=== PATIENT | female | born 1975 | race Caucasian/White ===

== ENCOUNTER 2016-06-08 04:56 | Emergency (ER) | payer OTHER ==
[~2016-06-08 04:56] MED LIST: AMBIEN10 M1 PO; AMITRIPTYLINE H25 M1 PO; BACTRIM DS TAB1 EAC2 PO; CELEXA20 M2 PO; LORTAB 5-325 M1 EAC1 PO; MELATONIN3 M4 PO; MOBIC15 M2 PO; NEURONTIN300 M1 PO; PRILOSEC20 M1 PO
[2016-06-08] MEDS ORDERED: NAPROSYN500 M1 PO (05:06)
[2016-06-08] MEDS ORDERED: CENTRUM COMPLE1 EAC1 PO (05:07)
[2016-06-08] MEDS ORDERED: BENADRYL25 M3 PO (05:07)
[2016-06-08] MEDS ORDERED: TYLENOL EXTRA500 M1 PO (05:07)
[2016-06-08] MEDS ORDERED: MELATONIN10 M6 PO (05:08)
[2016-06-08] MEDS ORDERED: MOBIC7.5 M2 PO (05:09)
[2016-06-08] MEDS ORDERED: PRILOSEC OTC20 M1 PO (05:09)
[2016-06-08] MEDS ORDERED: ZESTRIL20 M3 PO (05:10)
[2016-06-08] MEDS ORDERED: NEURONTIN300 M1 PO (05:10)
[2016-06-08] MEDS ORDERED: HYDROCHLOROTHIA25 M1 PO (05:11)
[2016-06-08] MEDS ORDERED: CARAFATE1 G2 PO (05:11)
[2016-06-08] MEDS ORDERED: AMITRIPTYLINE100 M1 PO (05:12)
[2016-06-08] MEDS ORDERED: TRAZODONE HCL50 M1 PO (05:12)
[2016-06-08] MEDS ORDERED: IMITREX6 MG/0.52 SC (05:14)
[2016-06-08] MEDS ORDERED: VITAMIN B-12250 MC2 PO (05:14)
== END 2016-06-08 07:05 ==
LOC: EDMED 04:56
DX: G43.909 Migraine, unspecified, not intractable, without status migrainosus (principal); I10 Essential (primary) hypertension; F32.9 Major depressive disorder, single episode, unspecified; K21.9 Gastro-esophageal reflux disease without esophagitis; Z90.89 Acquired absence of other organs; Z90.49 Acquired absence of other specified parts of digestive tract; Z79.899 Other long term (current) drug therapy; F17.210 Nicotine dependence, cigarettes, uncomplicated
CPT/HCPCS: J1200; J1885; J2765; J7030